=== PATIENT | male | born 1955 | race American Indian/Alaskan Native ===

== ENCOUNTER 2017-07-19 00:53 | Emergency (ER) | payer OTHER ==
[2017-07-19 01:49] VITALS: BP 141/86
--- NOTE | 2017-07-19 02:35 | XRay Report ---
FINAL REPORT PROCEDURE: XR HUMERUS 2+V LT TECHNIQUE: LEFT humerus radiographs, AP and lateral views. HISTORY: pain in shoulder to elbow COMPARISON: No prior studies are available for comparison. FINDINGS: Fracture (s) and/or Dislocation(s): None . Joint space(s): Normal. Soft tissues: Normal. Bone mineralization: Normal. Foreign bodies: Previous surgery with an anchor in the left proximal humerus. IMPRESSION: No acute fracture or dislocation
--- NOTE | 2017-07-19 02:36 | XRay Report ---
FINAL REPORT PROCEDURE: XR SHOULDER 2+V LT TECHNIQUE: LEFT shoulder radiographs including AP views in internal and external rotation and abduction. CPT 84301 HISTORY: shoulder pain unable to move arm COMPARISON: No prior studies are available for comparison. FINDINGS: Fracture (s) and/or Dislocation(s): None . Joint space(s): Mild narrowing of the joint spaces. Soft tissues: Normal . Bone mineralization: Normal . Foreign bodies: There is a surgical anchor identified in the proximal left humerus.. IMPRESSION: No acute fracture or dislocation. Mild arthritis
--- NOTE | 2017-07-19 06:22 | Emergency Department Report ---
ED General Adult HPI - General Chief complaint: Extremity Injury, Upper Stated complaint: LT ARM PAIN Time Seen by Provider: 07/19/17 06:21 Source: patient, family Mode of arrival: Ambulatory Limitations: No Limitations - History of Present Illness Initial comments: The patient complains of recurrent left shoulder pain. He is status post rotator cuff surgery over a year ago and [facility]. He doesn't recall the name of this orthopedist. He complains of pain in the same shoulder which occurs on movement. He has no associated symptoms. The shoulder hurts on movement only. He has no associated chest discomfort whatsoever. Pain only occurs on movement and not exertion. He is without other symptoms and desires discharge. -: week(s) Location: left, upper extremity Radiation: non-radiation Quality: aching Consistency: intermittent Improves with: none Worsens with: none Associated Symptoms: denies other symptoms Treatments Prior to Arrival: none - Related Data Previous Rx's Medication Instructions Recorded Last Taken Type Amoxicillin/K Clav Tab [Augmentin 1 tab PO Q12HR #14 tab 11/08/14 Unknown Rx 875MG TAB] Aspirin [Aspirin TAB] 325 mg PO QDAY #30 tablet 11/08/14 Unknown Rx Gabapentin [Neurontin] 300 mg PO TID #90 capsule 11/08/14 Unknown Rx Nicotine [Habitrol] 14 mg TD QDAY #14 patch 11/08/14 Unknown Rx Simvastatin [Zocor TAB] 20 mg PO QHS #30 tablet 11/08/14 Unknown Rx HYDROcodone/ACETAMINOPHEN [Locke 1 each PO Q6HR PRN #14 tablet 07/19/17 Unknown Rx 5-325 Tablet] Allergies Allergy/AdvReac Type Severity Reaction Status Date / Time No Known Allergies Allergy Verified 11/06/14 15:34 ED Review of Systems ROS: Stated complaint: LT ARM PAIN Other details as noted in HPI Constitutional: denies: chills, fever Eyes: denies: eye pain, eye discharge, vision change ENT: denies: ear pain, throat pain Respiratory: denies: cough, shortness of breath, wheezing Cardiovascular: denies: chest pain, palpitations Endocrine: no symptoms reported Gastrointestinal: denies: abdominal pain, nausea, diarrhea Genitourinary: denies: urgency, dysuria Musculoskeletal: as per HPI, arthralgia. denies: back pain, joint swelling Skin: denies: rash, lesions Neurological: denies: headache, weakness, paresthesias Psychiatric: denies: anxiety, depression Hematological/Lymphatic: denies: easy bleeding, easy bruising ED Past Medical Hx - Past Medical History Previous Medical History?: Yes Hx Heart Attack/AMI: Yes Additional medical history: CVA, bleeding ulcers, hemmorhoids - Surgical History Past Surgical History?: Yes Hx Coronary Stent: Yes Additional Surgical History: hx for ulcers, hemorrhoids removed - Social History Smoking Status: Current Every Day Smoker Substance Use Type: Alcohol - Medications Home Medications: Home Medications Medication Instructions Recorded Confirmed Last Taken Type Amoxicillin/K Clav Tab [Augmentin 1 tab PO Q12HR #14 tab 11/08/14 Unknown Rx 875MG TAB] Aspirin [Aspirin TAB] 325 mg PO QDAY #30 tablet 11/08/14 Unknown Rx Gabapentin [Neurontin] 300 mg PO TID #90 capsule 11/08/14 Unknown Rx Nicotine [Habitrol] 14 mg TD QDAY #14 patch 11/08/14 Unknown Rx Simvastatin [Zocor TAB] 20 mg PO QHS #30 tablet 11/08/14 Unknown Rx HYDROcodone/ACETAMINOPHEN [Locke 1 each PO Q6HR PRN #14 tablet 07/19/17 Unknown Rx 5-325 Tablet] ED Physical Exam - General Limitations: No Limitations General appearance: alert, in no apparent distress - Head Head exam: Present: atraumatic, normocephalic - Eye Eye exam: Present: normal appearance, PERRL, EOMI. Absent: scleral icterus - ENT ENT exam: Present: mucous membranes moist - Neck Neck exam: Present: normal inspection. Absent: tenderness, meningismus - Respiratory Respiratory exam: Present: normal lung sounds bilaterally. Absent: respiratory distress - Cardiovascular Cardiovascular Exam: Present: regular rate, normal rhythm. Absent: systolic murmur, diastolic murmur, rubs, gallop - GI/Abdominal GI/Abdominal exam: Present: soft, normal bowel sounds. Absent: distended, tenderness, guarding, rebound, rigid - Rectal Rectal exam: Present: deferred - Extremities Exam Extremities exam: Present: normal inspection - Back Exam Back exam: Absent: full ROM (range of motion of the left shoulder is limited and somewhat painful. There is no pain on minimal rotation however.), CVA tenderness (R), CVA tenderness (L) - Neurological Exam Neurological exam: Present: alert, oriented X3, CN II-XII intact. Absent: motor sensory deficit - Psychiatric Psychiatric exam: Present: normal affect, normal mood - Skin Skin exam: Present: warm, dry, intact, normal color. Absent: rash ED Course Vital Signs 07/19/17 07/19/17 01:42 06:17 Temperature 97.7 F Pulse Rate 75 Respiratory 18 20 Rate Blood Pressure 141/86 O2 Sat by Pulse 96 Oximetry - Reevaluation(s) Reevaluation #1: This is clearly a musculoskeletal shoulder pain. The patient is directed back to his orthopedist further care and evaluation. 07/19/17 06:51 ED Medical Decision Making - EKG Data -: EKG Interpreted by Me EKG shows normal: sinus rhythm, axis, intervals, QRS complexes, ST-T waves Rate: normal - EKG Data When compared to previous EKG there are: no significant change Interpretation: normal EKG - Radiology Data Radiology results: report reviewed interpreted by me: "Slight arthritis and "no acute change Critical care attestation.: If time is entered above; I have spent that time in minutes in the direct care of this critically ill patient, excluding procedure time. ED Disposition Clinical Impression: Musculoskeletal pain of left upper extremity Disposition: DC-01 TO HOME OR SELFCARE Is pt being admited?: No Does the pt Need Aspirin: No Condition: Stable Instructions: Musculoskeletal Pain (ED) Additional Instructions: Further evaluation from your orthopedic physician is certainly strongly recommended. Rx for pain. Return any acute change or problem. Prescriptions: HYDROcodone/ACETAMINOPHEN [Locke 5-325 Tablet] 1 each PO Q6HR PRN #14 tablet PRN Reason: Pain Referrals: PRIMARY CARE,MD [Primary Care Provider] - 3-5 Days usual, orthopedic physician [Other] - 3-5 Days Time of Disposition: 06:53
[2017-07-19] MEDS ORDERED: NORCO 5/325 PO ONE (06:54)
== END 2017-07-19 07:08 | disposition home or self-care (01) ==
LOC: ED 00:53
DX: M25.512 Pain in left shoulder (principal); I25.2 Old myocardial infarction; F17.200 Nicotine dependence, unspecified, uncomplicated; Z86.73 Personal history of transient ischemic attack (TIA), and cerebral infarction without residual deficits; Z95.818 Presence of other cardiac implants and grafts
CPT/HCPCS: 93005; 93010; 99284